=== PATIENT | female | born 1985 | race Two or more races ===

== ENCOUNTER 2021-09-13 09:06 | Inpatient (IN) | payer OTHER ==
[~2021-09-13] VITALS: Ht 167.6 cm; Wt 77.1 kg
[2021-09-13] MEDS ORDERED: PRENATAL + DHA1 EAC1 (09:31)
== END 2021-09-16 13:14 | disposition home or self-care (01) | DRG 785 ==
LOC: OB/GYN 09:06 → LDR 09:06 → OB/GYN 12:54
PROVIDERS: ADMIT Obstetrics & Gynecology; ATTEND Obstetrics & Gynecology
PROC: 0UB70ZZ Excision of Bilateral Fallopian Tubes, Open Approach (ICD-10-PCS; 2021-09-13)
PROC: 4A1HXCZ Monitoring of Products of Conception, Cardiac Rate, External Approach (ICD-10-PCS; 2021-09-13)
PROC: 10D00Z1 Extraction of Products of Conception, Low, Open Approach (ICD-10-PCS; principal; 2021-09-13 10:00)
DX: O34.211 Maternal care for low transverse scar from previous cesarean delivery (principal); Z30.2 Encounter for sterilization; Z20.822 Contact with and (suspected) exposure to COVID-19; Z3A.37 37 weeks gestation of pregnancy; Z37.0 Single live birth